=== PATIENT | female | born 1990 | race Caucasian/White ===

== ENCOUNTER → 2017-12-15 | Outpatient (CLI) | payer OTHER | LOC: M RAD 17:57 | DX: M25.512 Pain in left shoulder (principal) ==

== ENCOUNTER → 2017-12-18 | Outpatient (CLI) | payer OTHER | LOC: M RAD 17:49 | DX: S29.012D Strain of muscle and tendon of back wall of thorax, subsequent encounter (principal); M25.512 Pain in left shoulder; M51.35 Other intervertebral disc degeneration, thoracolumbar region; M51.24 Other intervertebral disc displacement, thoracic region; M51.34 Other intervertebral disc degeneration, thoracic region; D15.2 Benign neoplasm of mediastinum; N28.1 Cyst of kidney, acquired; Y92.89 Other specified places as the place of occurrence of the external cause; Y93.89 Activity, other specified; Y99.8 Other external cause status; X58.XXXA Exposure to other specified factors, initial encounter | CPT/HCPCS: 72146 ==

== ENCOUNTER → 2018-04-01 | Outpatient (REF) | payer OTHER | LOC: M SFHCWAGY 14:27 | DX: Z12.4 Encounter for screening for malignant neoplasm of cervix (principal) ==

== ENCOUNTER → 2020-10-12 | Outpatient (CLI) | payer SELFPAY | LOC: M LABSMTC 13:53 | PROVIDERS: ATTEND Pediatrics | DX: Z11.52 Encounter for screening for COVID-19 (principal) ==

== ENCOUNTER → 2023-09-12 | Outpatient (CLI) | payer OTHER | LOC: M PLALAB 14:23 | PROVIDERS: ATTEND Advanced Practice Midwife | DX: Z80.0 Family history of malignant neoplasm of digestive organs (principal); Z80.8 Family history of malignant neoplasm of other organs or systems ==